=== PATIENT | female | born 1970 | race Caucasian/White ===

== ENCOUNTER → 2018-01-06 | Outpatient (CLI) | payer BC ==
[~2018-01-06] MED LIST: ALBU90OI INH; Albuterol17 G1 INH; Cleocin HCl150 MG PO; DOXY100T53 PO; HYDACE5325 PO; LEVSOD50 PO; LEVSOD75 PO; LISI5; METF500 PO; OMEP20ER PO; OSEL75CA PO; Phenergan Vc-C120 ML PO; Prednisone20 MG PO; RXPROM25 PO; TORS10 PO
[2018-01-06 16:59] LABS: Adenovirus F 40/41 Not Detected (NOT DETECT); Astrovirus Not Detected (NOT DETECT); Campylobacter Sp Not Detected (NOT DETECT); Cryptosporidium Not Detected (NOT DETECT); Cyclospora Cayetanensis Not Detected (NOT DETECT); E. Coli O157 Not Detected (NOT DETECT); Entamoeba Histolytica Not Detected (NOT DETECT); Enteroaggregative E. coli-EAEC Not Detected (NOT DETECT); Enteropathogenic E. coli-EPEC Not Detected (NOT DETECT); Enterotoxigenic E. coli-ETEC Not Detected (NOT DETECT); Giardia Lamblia Not Detected (NOT DETECT); Norovirus GI/GII Not Detected (NOT DETECT); Plesiomonas Shigelloides Not Detected (NOT DETECT); Rotavirus A Not Detected (NOT DETECT); Salmonella Sp Not Detected (NOT DETECT); Sapovirus Not Detected (NOT DETECT); Shiga Toxin-prod E. coli-STEC Not Detected (NOT DETECT); Shigella/Enteroin E. coli-EIEC Not Detected (NOT DETECT); Vibrio Cholerae Not Detected (NOT DETECT); Vibrio Sp Not Detected (NOT DETECT); Yersinia Enterocolitica Not Detected (NOT DETECT)
== END | disposition home or self-care (01) ==
LOC: OLS 16:57
PROVIDERS: Internal Medicine Gastroenterology
DX: R19.7 Diarrhea, unspecified (principal)
CPT/HCPCS: 87507

== ENCOUNTER 2018-01-12 08:23 | Day surgery (SDC) | payer BC ==
[~2018-01-12] VITALS: Ht 165.1 cm; Wt 110.8 kg
[~2018-01-12 08:23] MED LIST changes: -LISI5
[2018-01-12] MEDS ORDERED: LISI5 (09:02)
== END 2018-01-12 10:42 | disposition home or self-care (01) ==
LOC: ORSCSDS 08:23
PROVIDERS: Internal Medicine Gastroenterology
PROC: 0DBE8ZX Excision of Large Intestine, Via Natural or Artificial Opening Endoscopic, Diagnostic (ICD-10-PCS; principal; 2018-01-12 09:45)
PROC: 0DBL8ZX Excision of Transverse Colon, Via Natural or Artificial Opening Endoscopic, Diagnostic (ICD-10-PCS; principal; 2018-01-12 09:45)
DX: K92.1 Melena (principal); K63.5 Polyp of colon; K57.30 Diverticulosis of large intestine without perforation or abscess without bleeding; K64.8 Other hemorrhoids; R19.7 Diarrhea, unspecified; Z80.0 Family history of malignant neoplasm of digestive organs; Z87.891 Personal history of nicotine dependence; K21.9 Gastro-esophageal reflux disease without esophagitis; E03.9 Hypothyroidism, unspecified; I10 Essential (primary) hypertension; E11.9 Type 2 diabetes mellitus without complications; Z79.84 Long term (current) use of oral hypoglycemic drugs; Z79.899 Other long term (current) drug therapy
CPT/HCPCS: 82947; 88305; J3010; J7120

== ENCOUNTER 2020-03-25 11:43 | Day surgery (SDC) | payer BC ==
[~2020-03-25] VITALS: Ht 165.1 cm; Wt 100.1 kg
[~2020-03-25 11:43] MED LIST changes: +Adipex-P37.5 MG; +BYDUREON B2 MG/0.85; +Glucophage 850850 MG PO; +LEVSOD112; +LISI5; +ROSU5
--- NOTE | 2020-03-25 12:34 | NUR ---
03/25/20 1234 Holly Campos [place]ED [place] 1233. [facility] [place]
== END 2020-03-25 14:10 | disposition home or self-care (01) ==
LOC: ORSCSDS 11:43
PROVIDERS: Orthopaedic Surgery
PROC: 01N50ZZ Release Median Nerve, Open Approach (ICD-10-PCS; principal; 2020-03-25 13:05)
DX: G56.01 Carpal tunnel syndrome, right upper limb (principal); I10 Essential (primary) hypertension; K21.9 Gastro-esophageal reflux disease without esophagitis; E11.9 Type 2 diabetes mellitus without complications; E66.9 Obesity, unspecified; Z68.36 Body mass index [BMI] 36.0-36.9, adult; Z79.899 Other long term (current) drug therapy
CPT/HCPCS: 82947; J2250; J3370; J7120

== ENCOUNTER 2021-03-31 11:00 | Day surgery (SDC) | payer BC ==
[~2021-03-31] VITALS: Ht 165.1 cm; Wt 102.2 kg
[2021-03-31] MEDS ORDERED: Adipex-P37.5 MG (11:29)
== END 2021-03-31 13:34 | disposition home or self-care (01) ==
LOC: ORSCSDS 11:00
PROVIDERS: Orthopaedic Surgery
PROC: 01N50ZZ Release Median Nerve, Open Approach (ICD-10-PCS; principal; 2021-03-31 12:15)
DX: G56.02 Carpal tunnel syndrome, left upper limb (principal); I10 Essential (primary) hypertension; E11.9 Type 2 diabetes mellitus without complications; K21.9 Gastro-esophageal reflux disease without esophagitis; Z87.891 Personal history of nicotine dependence; E66.01 Morbid (severe) obesity due to excess calories; Z68.37 Body mass index [BMI] 37.0-37.9, adult; Z79.84 Long term (current) use of oral hypoglycemic drugs; Z79.899 Other long term (current) drug therapy
CPT/HCPCS: 82947; J0171; J2250; J7120

== ENCOUNTER 2022-03-22 09:29 | Emergency (ER) | payer BC ==
[~2022-03-22] VITALS: Ht 165.1 cm; Wt 102.5 kg
[2022-03-22] MEDS ORDERED: SULTRIDS PO (12:35)
== END 2022-03-22 13:11 | disposition home or self-care (01) ==
LOC: ER 09:29
DX: L03.116 Cellulitis of left lower limb (principal); E11.9 Type 2 diabetes mellitus without complications; E03.9 Hypothyroidism, unspecified; Z79.899 Other long term (current) drug therapy; Z87.891 Personal history of nicotine dependence; Z79.84 Long term (current) use of oral hypoglycemic drugs
CPT/HCPCS: 93971

== ENCOUNTER 2023-08-31 14:31 | Emergency (ER) | payer BC ==
[~2023-08-31] VITALS: Ht 165.1 cm; Wt 99.8 kg
[~2023-08-31 14:31] MED LIST changes: +SULTRIDS PO
[2023-08-31 14:52] VITALS: BP 155/99
== END 2023-08-31 16:31 | disposition home or self-care (01) ==
LOC: ER 14:31
DX: H11.31 Conjunctival hemorrhage, right eye (principal); E03.9 Hypothyroidism, unspecified; E11.9 Type 2 diabetes mellitus without complications; Z87.891 Personal history of nicotine dependence; Z79.899 Other long term (current) drug therapy; Z79.890 Hormone replacement therapy; Z79.84 Long term (current) use of oral hypoglycemic drugs; Z88.1 Allergy status to other antibiotic agents
CPT/HCPCS: 99282